=== PATIENT | male | born 1995 | race Hispanic/Latino ===

== ENCOUNTER 2025-01-02 10:30 | Emergency (ER) | payer SELFPAY ==
[2025-01-02] MEDS ORDERED: Lidocaine 1% w/Epinephrine 1:100K 20 ML VIAL ONE (10:34)
[2025-01-02] MEDS ORDERED: Bacitracin 1 PK ONE (11:02)
== END 2025-01-02 10:59 | disposition home or self-care (01) ==
LOC: ERS 10:30
DX: S01.01XA Laceration without foreign body of scalp, initial encounter (principal); W22.8XXA Striking against or struck by other objects, initial encounter; Z23 Encounter for immunization
CPT/HCPCS: 12002; 90471; 90715

== ENCOUNTER 2025-01-12 16:20 | Emergency (ER) | payer SELFPAY | END 2025-01-12 16:50 | disposition home or self-care (01) | LOC: ERS 16:20 | DX: S01.01XD Laceration without foreign body of scalp, subsequent encounter (principal); X58.XXXD Exposure to other specified factors, subsequent encounter ==